=== PATIENT | male | born 2000 | race Hispanic/Latino ===

== ENCOUNTER 2021-03-04 07:47 | Emergency (ER) | payer OTHER, SELFPAY ==
[2021-03-04] MEDS ORDERED: MORPHINE 2 MG/ML SYR ONE (08:39)
[2021-03-04] MEDS ORDERED: ONDANSETRON 4 MG/2 ML VIAL ONE (08:39)
[2021-03-04] MEDS ORDERED: TETANUS & DIPHTHERIA TOX,ADULT 0.5 ML VIAL ONE (08:40)
[2021-03-04] MEDS ORDERED: LIDOCAINE 1% W/EPI 1:100,000 MDV 20 ML VIAL ONE (09:01)
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
[2021-03-04 10:16] VITALS: BP 117/78; TEMP 98; O2SAT 100
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
== END 2021-03-04 10:08 | disposition home or self-care (01) ==
LOC: ER 07:47
PROC: 0JQ10ZZ Repair Face Subcutaneous Tissue and Fascia, Open Approach (ICD-10-PCS; principal; 2021-03-04)
DX: S01.81XA Laceration without foreign body of other part of head, initial encounter (principal); V49.50XA Passenger injured in collision with unspecified motor vehicles in traffic accident, initial encounter; Z23 Encounter for immunization
CPT/HCPCS: 70450; 72125; 71260; 70486; 76377; 74177; 90714; 12013; Q9967; J2270; J2405